=== PATIENT | male | born 1995 | race Caucasian/White ===

== ENCOUNTER 2016-05-19 02:11 | Emergency (ER) | payer OTHER ==
[~2016-05-19] VITALS: Ht 177.8 cm; Wt 64.3 kg
[~2016-05-19 02:11] MED LIST: AMPH20TA5 PO; PROZ20 PO; QUET200T PO
[2016-05-19 02:28] VITALS: BP 119/79; PULSE 83; RESP 19; O2SAT 99
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
== END 2016-05-19 03:26 | disposition home or self-care (01) ==
LOC: SED 02:11
DX: F11.20 Opioid dependence, uncomplicated (principal); F15.10 Other stimulant abuse, uncomplicated; Z59.0 Homelessness